=== PATIENT | female | born 1985 | race Caucasian/White ===

== ENCOUNTER → 2023-06-03 08:03 | Outpatient (CLI) | payer OTHER, SELFPAY ==
[2023-06-03 09:43] LABS: Add Manual Diff / Slide Review NO; Basophils Absolute Auto 0 /uL (0-100); Basophils Percent Auto 0.4 % (0-2); Eosinophils Absolute Auto 100 /uL (0-450); Hemoglobin 12.3 g/dL (12.0-16.0); Lymphocytes Absolute Auto 1300 /uL (1100-4500); Lymphocytes Percent Auto 17.9 % (25-40); Mean Corpuscular HGB Conc 34.3 % (30-36); Mean Corpuscular Hemoglobin 30.2 PG (26-34); Mean Corpuscular Volume 88.1 fL (80-100); Monocytes Absolute Auto 400 /uL (0-900); Monocytes Percent Auto 5.3 % (3-14); Neutrophils Absolute Auto 5500 /uL (1500-7000); Neutrophils Percent Auto 75.4 % (50-75); Platelet Count 64 X10^3/uL (150-400); Red Blood Cell Count 4.08 X10^6/uL (4.0-5.2); Red Cell Distribution Width 13.3 % (11.6-14.8); White Blood Cell Count 7.3 X10^3/uL (4.5-11.0)
[2023-06-03 10:04] LABS: Hemoglobin A1C% w Est Avg Glu 5.2 % (4.0-6.0)
[2023-06-03 10:19] LABS: Alanine Aminotransferase 26 IU/L (<35); Albumin 4.3 g/dL (3.5-5.0); Albumin Globulin Ratio 1.4 (1.0-2.8); Alkaline Phosphatase 47 U/L (38-126); Aspartate Aminotransferase 24 IU/L (14-36); BUN Creatinine Ratio 15.9 (6-22); Bilirubin Total 0.7 mg/dL (0.2-1.3); Blood Urea Nitrogen 10 mg/dL (7-17); Calcium 9.6 mg/dL (8.4-10.2); Carbon Dioxide 27 mmol/L (22-32); Chloride 102 mmol/L (98-107); Cholesterol 164 mg/dL (140-199); Estimated Glomerular Filt Rate > 60 mL/min (>60); Globulin 3.1 g/dL (1.7-4.1); Glucose 100 mg/dL (70-100); HDL Cholesterol 44 mg/dL (40-60); HEMOLYSIS < 15 (0-50); LDL Cholesterol Calculated 101 mg/dL (<100); Potassium 4.3 mmol/L (3.4-5.1); Sodium 138 mmol/L (137-145); Total Protein 7.4 g/dL (6.3-8.2); Triglycerides 94 mg/dL (35-150)
[2023-06-03 10:49] LABS: Cortisol AM (Before 10AM) 7.98 ug/dL (4.46-22.7)
[2023-06-03 10:51] LABS: TSH w/ Reflex to FT4 0.72 uIU/mL (0.47-4.68)
== END ==
LOC: LAB 08:04
PROVIDERS: PCP Family Medicine; Referring Provider Family Medicine; Visit Provider Family Medicine
DX: Z13.6 Encounter for screening for cardiovascular disorders (principal); K90.41 Non-celiac gluten sensitivity; R63.5 Abnormal weight gain
CPT/HCPCS: 36415; 80053; 80061; 82533; 83036; 84443; 85025

== ENCOUNTER → 2023-06-15 15:01 | Outpatient (CLI) | payer OTHER, SELFPAY ==
[2023-06-15 15:33] LABS: Add Manual Diff / Slide Review NO; Basophils Absolute Auto 100 /uL (0-100); Basophils Percent Auto 0.8 % (0-2); Eosinophils Absolute Auto 100 /uL (0-450); Eosinophils Percent Auto 1.5 % (2-4); Hemoglobin 13.2 g/dL (12.0-16.0); Lymphocytes Absolute Auto 2600 /uL (1100-4500); Lymphocytes Percent Auto 33.4 % (25-40); Mean Corpuscular HGB Conc 34.9 % (30-36); Mean Corpuscular Volume 85.9 fL (80-100); Monocytes Absolute Auto 400 /uL (0-900); Monocytes Percent Auto 5.6 % (3-14); Neutrophils Absolute Auto 4600 /uL (1500-7000); Neutrophils Percent Auto 58.7 % (50-75); Platelet Count 275 X10^3/uL (150-400); Red Blood Cell Count 4.42 X10^6/uL (4.0-5.2); Red Cell Distribution Width 12.9 % (11.6-14.8); White Blood Cell Count 7.8 X10^3/uL (4.5-11.0)
[2023-06-15 16:10] LABS: Vitamin D 25 Hydroxy (D3) 38.6 ng/mL (30.0-100.0)
[2023-06-15 17:00] LABS: Folate 13.9 ng/mL (2.76-20.0); Vitamin B12 807 pg/mL (239-931)
== END ==
PROVIDERS: PCP Family Medicine; Referring Provider Family Medicine; Visit Provider Family Medicine
DX: D69.6 Thrombocytopenia, unspecified (principal)
CPT/HCPCS: 36415; 82306; 82607; 82746; 85025

== ENCOUNTER → 2023-08-01 07:58 | Outpatient (CLI) | payer OTHER, SELFPAY ==
[2023-08-01 08:44] LABS: Influenza A - CEPHEID Flu A NEGATIVE (NEGATIVE); Influenza B - CEPHEID Flu B NEGATIVE (NEGATIVE); Respiratory Syncytial Virus Negative (Negative)
[2023-08-01 08:53] LABS: COVID-19 CEPHEID 4-PLEX PCR Negative (Negative)
== END ==
PROVIDERS: PCP Family Medicine; Visit Provider Physician Assistant Surgical
DX: R05.1 Acute cough (principal)
CPT/HCPCS: 0241U

== ENCOUNTER → 2023-08-01 19:55 | Outpatient (CLI) | payer OTHER, SELFPAY ==
--- NOTE | 2023-08-01 19:57 | DI.RAD.S_ITS ---
PROCEDURE: XR CHEST 2V INDICATIONS: Dyspnea, cough TECHNIQUE: 2 views of the chest were acquired. COMPARISON: None. FINDINGS: Surgical changes and devices: None. Lungs and pleura: Lungs are clear. No pleural effusions or pneumothorax. Mediastinum: Mediastinal contours are normal. Heart size is normal. Bones and chest wall: No suspicious bony abnormalities. Soft tissues appear unremarkable. IMPRESSION: No acute cardiopulmonary abnormality is seen. Dictated by: Jairon Pack M.D. on 08/01/2023 at 20:38 Approved by: Jairon Pack M.D. on 08/01/2023 at 20:38
== END ==
PROVIDERS: PCP Family Medicine; Referring Provider Physician Assistant Surgical; Visit Provider Physician Assistant Surgical
DX: R05.1 Acute cough (principal); R06.00 Dyspnea, unspecified
CPT/HCPCS: 0241U; 71046

== ENCOUNTER → 2023-11-12 14:18 | Outpatient (CLI) | payer OTHER, SELFPAY ==
--- NOTE | 2023-11-16 13:10 | DIET.OUTPTC ---
Dietary Outpatient Consultation Note Consultation Date: 11/12/2023 Assessment: 38 y F referred for dietitian for obesity and PCOS. Lana reports working to maintain consistent healthy eating habits in past 6 m, especially August/July, and consistent walking of ~5 mi, 10k steps during August/July. However, reports experiencing periods of stress when eating according to set routine becomes difficult. Feeling discouraged with slow weight loss, despite efforts. Gluten intolerant and vegan. Diet recall: B-1/2 banana, 1/2 Ripple pea protein, scoop of sun warrior protein powder, pb L- Kale salad 4 c, 2/3 c carrots, nutritional yeast, dressing, seeds/nuts S-[place] bar (220 kcal/10 g pro) or almond/chocolate, S-smoothie D-rice, [place], veg (or kale), sauce, avocado OR tacos After 8p will have dessert or healthy protein based snack During periods of stress -- increased intake of caffeine and desserts/sweets Denies N/V/D/C. Ht: 5 ft 7 in Wt: 252 lb and 8 oz BMI: 39.5 Weight History: (in kg) 10/19/23 114.532 kg (-2.9% weight loss in 5 months) 05/21/23 117.934 kg Nutrition Diagnosis: Excessive energy intake r/t energy dense food choices aeb diet recall during periods of stress Interventions: -Decreased energy intake through focus on intuitive eating -Educ on balanced meals, sustainable eating habits, mindful eating, principles of intuitive eating, label reading, protein needs, macros -Discussed realistic weight loss goals and progress -5-10% -FL with goal setting -Discussion of balance eating habits vs all or nothing type of approach/diets Goals: -use of hunger/fullness scale -1-2 mindful eating practices -protein source w/ 8pm+ snacks -continuation with physical activity Monitoring/Evaluations: diet recall, weight, goals, f/u in 2.5 months Electronically Signed by: Irina Peguero 11/16/23 13:10 Clinical Dietitian [address] [address]
== END ==
PROVIDERS: PCP Family Medicine; Referring Provider Family Medicine
DX: E66.9 Obesity, unspecified (principal); E28.2 Polycystic ovarian syndrome; Z68.39 Body mass index [BMI] 39.0-39.9, adult; Z71.3 Dietary counseling and surveillance
CPT/HCPCS: 97802

== ENCOUNTER → 2024-03-12 12:58 | Outpatient (CLI) | payer OTHER, SELFPAY ==
--- NOTE | 2024-03-12 12:58 | DI.MG.S_ITS ---
BILATERAL DIGITAL SCREENING MAMMOGRAM 3D/2D WITH CAD: 03/12/2024 CLINICAL: Baseline exam. Routine screening. No prior exams were available for comparison. The breasts are almost entirely fatty (category a/<25% glandular tissue). Current study was also evaluated with a Computer Aided Detection (CAD) system. No significant masses, calcifications, or other findings are seen in either breast. IMPRESSION: NEGATIVE There is no mammographic evidence of malignancy. A 1 year screening mammogram is recommended. Based on the Tyrer Cuzick model (a risk assessment model) the patient's lifetime risk is 6.5% and her 10 year risk is 0.8%. According to the ACR, ACS, and NCCN guidelines, an annual breast MRI exam along with mammogram is recommended if the patient's lifetime risk is 20% or greater. This exam was interpreted at Station ID: [id number]. NOTE: For mammograms, a report in lay terms will be sent to the patient. Approximately 15% of breast malignancies will not be visualized mammographically. In the management of a palpable breast mass, a negative mammogram must not discourage biopsy of a clinically suspicious lesion. Electronically Signed By: Sukumar silver/[email or web address]:03/14/2024 07:42:40 letter sent: Normal Exam ACR BI-RADS Category 1: Negative
== END ==
PROVIDERS: PCP Family Medicine; Referring Provider Family Medicine; Visit Provider Family Medicine
DX: Z12.31 Encounter for screening mammogram for malignant neoplasm of breast (principal); R92.313 Mammographic fatty tissue density, bilateral breasts
CPT/HCPCS: 77063; 77067